=== PATIENT | female | born 1975 | race American Indian/Alaskan Native ===

== ENCOUNTER 2021-06-21 10:31 | Outpatient (CLI) | payer BC ==
[2021-06-21 11:44] LABS: Alanine Aminotransferase 24 units/L (7-56); Blood Urea Nitrogen 7 mg/dL (7-17); Calcium 8.1 mg/dL (8.4-10.2); Hemolysis Index 4
[2021-06-21 11:47] LABS: BUN/Creatinine Ratio 14
== END 2021-06-21 10:32 | disposition home or self-care (01) ==
LOC: LAB 10:31
PROVIDERS: ATTEND Specialist
DX: G61.9 Inflammatory polyneuropathy, unspecified (principal); G65.1 Sequelae of other inflammatory polyneuropathy; G62.9 Polyneuropathy, unspecified
CPT/HCPCS: 36415; 80053; 82306; 82607; 83036; 83921; 84165; 84443; 85652; 86038; 86225; 86334; 86431; 86592; 86689